=== PATIENT | male | born 1960 ===

== ENCOUNTER 2021-02-20 06:53 | Day surgery (SDC) | payer BC ==
[~2021-02-20 06:53] MED LIST: Lactated Ringers 1,000 ML IV SCH; Sodium Chloride 0.9% 10 ML Syringe FLUSH PRN
[2021-02-20] MEDS ORDERED: Propofol 200 MG/20 ML SDV IV ONE (06:54)
--- NOTE | 2021-02-20 08:07 | PCM.PN ---
- General Info Date of Service: 02/20/21 Admission Dx/Problem (Free Text): Colon Cancer Screening Colonoscopy - Review of Systems General: Reports: No Symptoms Gastrointestinal: Reports: Other (Bowels working well without bleeding) - Patient Data Vitals - Most Recent: Last Vital Signs Temp 98.5 F 02/20/21 07:29 Pulse 62 02/20/21 07:29 Resp 16 02/20/21 07:29 BP 132/80 02/20/21 07:29 Pulse Ox 97 02/20/21 07:29 Weight - Most Recent: 248 lb Med Orders - Current: Current Medications Lactated Ringer's (Ringers, Lactated) 1,000 mls @ 125 mls/hr IV ASDIRECTED LALO Last Admin: 02/20/21 07:51 Dose: 125 mls/hr Documented by: Sodium Chloride (Sodium Chloride 0.9% 10 Ml Syringe) 10 ml FLUSH ASDIRECTED PRN PRN Reason: Keep Vein Open - Exam General: Alert, Oriented Lungs: Clear to Auscultation, Normal Respiratory Effort Cardiovascular: Regular Rate, Regular Rhythm GI/Abdominal Exam: Soft Extremities: Normal Inspection Sepsis Event Note - Focused Exam Vital Signs: Vital Signs Temp Pulse Resp BP Pulse Ox 02/20/21 07:29 98.5 F 62 16 132/80 97 - Problem List Review Problem List Initiated/Reviewed/Updated: Yes - My Orders Last 24 Hours: My Active Orders 02/20/21 Breakfast Nothing Per Oral Diet [DIET] 02/20/21 06:45 Patient Status [ADT] Routine Verify Patient Consent Obtain [RC] ASDIRECTED Lactated Ringers [Ringers, Lactated] 1,000 ml IV ASDIRECTED Sodium Chloride 0.9% [Saline Flush] 10 ml FLUSH ASDIRECTED PRN Peripheral IV Insertion Adult [OM.PC] Routine - Assessment Assessment:: Colon Cancer Screening - Plan Plan:: Colonoscopy
--- NOTE | 2021-02-20 08:40 | PCM.OPNOTE ---
- General Post-Op/Procedure Note Date of Surgery/Procedure: 02/20/21 Operative Procedure(s): Colonoscopy Findings: Internal hemorrhoids with normal appearing colon Pre Op Diagnosis: Colon Cancer Screening Post-Op Diagnosis: Hemorrhoids Anesthesia Technique: MAC Primary Surgeon: Raudel Ruggiero Pathology: none EBL in mLs: 0 Complications: None Condition: Good
--- NOTE | 2021-02-20 10:31 | OR ---
DATE OF OPERATION: 02/20/2021 SURGEON: Raudel Ruggiero MD PREOPERATIVE DIAGNOSIS: Colon cancer screening. POSTOPERATIVE DIAGNOSIS: Internal hemorrhoids. OPERATION PERFORMED: Colonoscopy. INDICATIONS FOR SURGERY: This 60-year-old male presents today for screening colonoscopy. It has been 10 years since his last colon exam. He notes no recent changes in bowel pattern or rectal bleeding. FINDINGS: The patient's colon appears normal. He does have moderate-sized internal hemorrhoids. PROCEDURE IN DETAIL: The patient was taken to the procedure room. He was given intravenous sedation and with him in the left lateral decubitus position, digital rectal exam was performed showing no rectal masses. The Olympus colonoscope was inserted into the rectum. Retroflexed examination of the rectal canal was performed. The scope was then carefully advanced under direct visualization through the entire length of the colon until the cecum was reached. Cecal acquisition was confirmed by noting the normal internal cecal anatomy including the appendiceal orifice and the ileocecal valve. The light was also noted to transilluminate the abdominal wall in the right lower quadrant. After examining the cecum, the scope was slowly withdrawn, sequentially re-examining the colonic segments. Once the entire colon and rectum had been fully examined, the scope was removed and the patient was taken from the procedure room in satisfactory condition. ESTIMATED BLOOD LOSS: Zero. COMPLICATIONS: None. PROGNOSIS: Good. /[id number] PRAFUL/GRETCHEN
== END 2021-02-20 09:40 | disposition home or self-care (01) ==
LOC: FB.SDS 06:53
PROVIDERS: ATTEND Surgery
DX: Z12.11 Encounter for screening for malignant neoplasm of colon (principal); K64.8 Other hemorrhoids; E78.00 Pure hypercholesterolemia, unspecified; G47.30 Sleep apnea, unspecified
CPT/HCPCS: 00812; 45378; J2704; J7120